=== PATIENT | female | born 1975 | race American Indian/Alaskan Native ===

== ENCOUNTER 2020-10-16 09:15 | Outpatient (CLI) | payer OTHER ==
--- NOTE | 2020-10-16 12:52 | Magnetic Resonance Report ---
BILATERAL BREAST MRI WITH AND WITHOUT CONTRAST CLINICAL INFORMATION/INDICATION: The patient has a new diagnosis of right breast neoplasm (DCIS). She recently underwent percutaneous biopsy of a right breast lesion which demonstrated DCIS. TECHNICAL: Axial T1 and T2-weighted fat sat images were obtained precontrast. Gadolinium-based contra st was injected intravenously and serial axial T1 weighted images with fat saturation were obtained. 3-D MIP projections, kinetic analysis and subtraction imaging was utilized to evaluate. A dedicated 8 -channel breast coil was used for image acquisition. COMPARISON: Diagnostic mammogram and ultrasound, 06/25/2020 from [facility]. FINDINGS: There is low level background enhancement within both breasts. There are scattered fibroglandular de nsities bilaterally. Right breast: There is a linear masslike area of enhancement at the 4:00 position anterior depth whic h represents patient's biopsy-proven right breast neoplasm. It measures 3.6 x 1.0 x 1.2 cm. It is loc ated 3.8 cm from the nipple and 9.2 cm from the chest wall. This corresponds to the asymmetric densit y seen on the mammogram. No additional separate suspicious area of enhancement is seen in the right b reast. Left breast: No dominant mass or suspicious area of enhancement is seen in the left breast. Axilla: No pathologically enlarged axillary lymph nodes are identified. Additional findings: Limited imaging of the thorax and upper abdomen demonstrates no focal abnormalit y. IMPRESSION: 1. Biopsy-proven right breast neoplasm at the 4:00 position anterior depth as described above. 2. No MRI abnormality of the left breast. Follow up recommendation: No recall. Surgical consultation is ongoing with Dr. Mathis. BI-RADS Category 6: Known Biopsy-Proven Malignancy. Signer Name: Juju Kasper MD Signed: 10/16/2020 12:48 PM Workstation Name: [id number]
== END 2020-10-16 09:16 | disposition home or self-care (01) ==
LOC: SPVIMAG 09:15
PROVIDERS: ATTEND Surgery
DX: R92.8 Other abnormal and inconclusive findings on diagnostic imaging of breast (principal)
CPT/HCPCS: A9577; C8908; 77049

== ENCOUNTER 2020-11-13 06:54 | Day surgery (SDC) | payer OTHER ==
[2020-11-06 09:47] LABS: Hematocrit 32.5 % (30.3-42.9); Hemoglobin 10.4 gm/dl (10.1-14.3); Mean Corpuscular HGB Conc 32 % (30-34); Mean Corpuscular Volume 78 fl (79-97); Platelet Count 345 K/mm3 (140-440); Red Blood Count 4.14 M/mm3 (3.65-5.03); Red Cell Distribution Width 17.1 % (13.2-15.2)
[2020-11-06 10:03] LABS: Blood Urea Nitrogen 11 mg/dL (7-17); Calcium 9.5 mg/dL (8.4-10.2); Hemolysis Index 2
[2020-11-06 10:04] LABS: BUN/Creatinine Ratio 16
[~2020-11-13 06:54] MED LIST: ACETAMINOPHEN 500 MG TAB PO SCH; BUPIVACAINE/PF (0.25%) 2.5 MG/ML 30 ML VIAL INFILTRATI ONE; CELECOXIB 200 MG CAP PO NR; GABAPENTIN 300 MG CAP PO NR; LACTATED RINGERS 1,000 ML IV SCH; LIDOCAINE (1%) 10 MG/1 ML VIAL 20 ML MDV INFILTRATI ONE; ceFAZolin/Water 2 GM/20 ML 2 GM/20 ML SYRINGE IV NR
[2020-11-13] MEDS ORDERED: BACTERIOSTATIC SODIUM CHLORIDE 0.9% 30 ML VIAL INFILTRATI ONE (06:57)
[2020-11-13] MEDS ORDERED: ONDANSETRON 4 MG/2 ML INJ IV PRN (07:28)
[2020-11-13] MEDS ORDERED: HYDROmorphone 1 MG/1 ML INJ IV PRN (07:28)
--- NOTE | 2020-11-13 07:28 | Anesthesia Consultation ---
Anesthesia Consult and Med Hx Date of service: 11/13/20 - Airway Anesthetic Teeth Evaluation: Good ROM Head & Neck: Adequate Mental/Hyoid Distance: Adequate Mallampati Class: Class I Intubation Access Assessment: Good - Pre-Operative Health Status ASA Pre-Surgery Classification: ASA2 Proposed Anesthetic Plan: General - Pulmonary Hx Smoking: No Hx Respiratory Symptoms: No - Cardiovascular System Hx Hypertension: Yes Hx Heart Attack/AMI: No Hx Percutaneous Transluminal Coronary Angioplasty (PTCA): No - Central Nervous System CVA: No - Endocrine Hx Renal Disease: No Hx Liver Disease: No Hx Non-Insulin Dependent Diabetes: Yes Hx Thyroid Disease: No - Other Systems Hx Obesity: Yes (BMI 32) - Additional Comments Anesthesia Medical History Comments: No hx anesthetic complications.
--- NOTE | 2020-11-13 07:28 | Anesthesia Day of Surgery ---
Anesthesia Day of Surgery - Day of Surgery Patient Examined: Yes Patient H&P Reviewed: Yes Patient is NPO: Yes
[2020-11-13] MEDS ORDERED: LIDOCAINE (1%) 10 MG/1 ML VIAL 20 ML MDV ONE ×3 (07:30→11:24)
[2020-11-13] MEDS ORDERED: BUPIVACAINE/PF (0.25%) 2.5 MG/ML 30 ML VIAL INFILTRATI ONE ×3 (07:31→12:57)
[2020-11-13] MEDS: MIDAZOLAM 2 MG/2 ML INJ IV NR ×2 (08:52→10:25)
--- NOTE | 2020-11-13 09:42 | Mammography Report ---
MAMMOGRAPHIC GUIDED RIGHT BREAST NEEDLE LOCALIZATION, 11/13/2020 CLINICAL INFORMATION / INDICATION: RT BREAST MASS. COMPARISON: 10/16/2020. 08/28/2020. PROCEDURE: Risks, benefits and indications to the procedure were discussed with the patient. The patient agreed to proceed with both verbal and written consent. A timeout procedure was performed with 2 patient sheryl ntifiers. The breast was prepped with betadine in the usual sterile fashion. Approximately 3 cc of Lidocaine 1% was used for local anesthesia. Under direct digital mammographic guidance, a localization wire was p laced in satisfactory position with distal tip traversing the targeted lesion. Post-biopsy mammogram confirms satisfactory positioning of the localization wire. The wire was secured to the skin with a s terile dressing. The patient tolerated procedure without difficulty. No complications were encountered. IMPRESSION: 1. Satisfactory mammographic guided wire localization of the right breast. Signer Name: Emory Dumont Jr, MD Signed: 11/13/2020 9:38 AM Workstation Name: [id number]
[2020-11-13] MEDS ORDERED: MIDAZOLAM 2 MG/2 ML INJ IV NR (10:30)
[2020-11-13] MEDS ORDERED: ONDANSETRON 4 MG/2 ML INJ ONE (11:37)
[2020-11-13] MEDS ORDERED: dexAMETHasone 20 MG/5 ML VIAL ONE (11:37)
[2020-11-13] MEDS ORDERED: KETOROLAC 30 MG/1 ML INJ ONE (11:37)
[2020-11-13] MEDS ORDERED: propofoL 200 MG/20 ML VIAL IV ONE (11:37)
[2020-11-13] MEDS ORDERED: LIDOCAINE MPF (2%) 20 MG/1 ML VIAL 5 ML ONE (11:37)
[2020-11-13] MEDS ORDERED: HYDROmorphone 1 MG/1 ML INJ ONE (11:37)
[2020-11-13] MEDS ORDERED: ePHEDrine SULFATE 50 MG/1 ML INJ ONE (12:31)
[2020-11-13] MEDS ORDERED: WATER FOR IRRIG STERILE 1,500 ML BOTTLE IR ONE (12:42)
[2020-11-13] MEDS ORDERED: SODIUM CHLORIDE 0.9% 1000 ML 1,000 ML ONE (12:51)
[2020-11-13] MEDS ORDERED: LIDOCAINE (1%) 10 MG/1 ML VIAL 20 ML MDV INFILTRATI ONE (12:57)
--- NOTE | 2020-11-13 13:07 | Short Stay Summary ---
Short Stay Documentation Date of service: 11/13/20 - History H&P: obtained from office - Allergies and Medications Current Medications: Allergies shellfish derived Allergy (Verified 11/05/20 17:08) Itching Home Medications Medication Instructions Recorded Confirmed Last Taken Type Dulaglutide [Trulicity] 1.5 mg SQ QWEEK 11/05/20 11/05/20 11/12/20 History Irbesartan/Hydrochlorothiazide 1 each PO DAILY 11/06/20 11/06/20 11/12/20 History [Avalide 150-12.5 mg Tablet] oxyCODONE /ACETAMINOPHEN [Percocet 1 tab PO Q6HR PRN #8 tablet 11/13/20 Unknown Rx 5/325] Active Medications Acetaminophen (Acetaminophen 500 Mg Tab) 1,000 mg PO PREOP TOI Stop: 11/13/20 23:00 Last Admin: 11/13/20 08:50 Dose: 1,000 mg Documented by: Celecoxib (Celecoxib 200 Mg Cap) 200 mg PO PREOP NR Stop: 11/13/20 23:00 Last Admin: 11/13/20 08:50 Dose: 200 mg Documented by: Gabapentin (Gabapentin 300 Mg Cap) 300 mg PO PREOP NR Stop: 11/13/20 23:00 Last Admin: 11/13/20 08:50 Dose: 300 mg Documented by: Hydromorphone HCl (Hydromorphone 1 Mg/1 Ml Inj) 0.5 mg IV Q10MIN PRN PRN Reason: Pain , Severe (7-10) Stop: 11/13/20 23:00 Cefazolin Sodium (Ancef/Sterile Water 2 Gm/20 Ml) 2 gm in 20 mls @ 80 mls/hr IV PREOP NR; Protocol Stop: 11/13/20 23:00 Lactated Ringer's (Lactated Ringers) 1,000 mls @ 100 mls/hr IV DIRECT TOI Stop: 11/13/20 23:59 Last Admin: 11/13/20 08:45 Dose: 100 mls/hr Documented by: Midazolam HCl (Midazolam 2 Mg/2 Ml Inj) 2 mg IV PREOP NR Stop: 11/13/20 23:00 Last Admin: 11/13/20 10:25 Dose: 2 mg Documented by: Midazolam HCl (Midazolam 2 Mg/2 Ml Inj) 2 mg IV PREOP NR Stop: 11/13/20 23:59 Ondansetron HCl (Ondansetron 4 Mg/2 Ml Inj) 4 mg IV ONCE PRN PRN Reason: Nausea And Vomiting Stop: 11/13/20 16:00 - Brief post op/procedure progress note Date of procedure: 11/13/20 Pre-op diagnosis: Right breast atypia lower inner quadrant Post-op diagnosis: same Procedure: Right needle localization excisional biopsy Anesthesia: GETA Findings: wire and clip present Surgeon: FANI URIBE Estimated blood loss: minimal Pathology: list Specimen disposition: to lab Condition: stable - Disposition Condition at discharge: Good Disposition: DC-01 TO HOME OR SELFCARE Short Stay Discharge Plan Activity: other (no heavy lifting) Diet: regular Wound: keep clean and dry (may shower in 48 hours; no baths, pools or lakes; wear breast binder; do not rub or scrub incision) Follow up with: FANI URIBE MD [Staff Physician] - 7 Days Prescriptions: oxyCODONE /ACETAMINOPHEN [Percocet 5/325] 1 tab PO Q6HR PRN #8 tablet PRN Reason: Pain
--- NOTE | 2020-11-13 13:13 | Operative Report ---
Operative Report Operative Report: Operative Report: November 13, 2020 Preoperative diagnosis: Right breast distortion/asymmetry of the lower inner quadrant Postoperative diagnosis: Same Procedure: Right breast needle localization excisional biopsy Surgeon: Henna Mathis MD Sediment Remediation Consultant: Carol Washington MD Anesthesia: General Findings: Right wire and x1 clip present within radiograph specimen Complications: None EBL: Minimal (less than 25 cc) Disposition: PACU in good condition Indications for operative procedure: This is a 45 year old lady with recent abnormal right mammogram of the lower inner quadrant. Ultrasound guided needle core biopsy performed at 4:00 position 3-5 cm FN with findings of atypia and suspicioun for DCIS (at area of multiple ectatic ducts). Breast MRI with consistent findings of nonmass enhancment at area of concern at biopsy location. Recommendations are to proceed with right breast needle excisional biopsy to rule out malignancy. She wished to proceed with the above procedure. Procedure in detail: The patient was taken to radiology for wire placement for localization known area of concern. Patient was then taken to the operating room. Gen. anesthesia was administered. Right breast and axilla were prepped and draped in the normal sterile operative fashion. The wire was identified around 4:00 position 3-5 cm FN. Timeout was performed. Ultrasound used as well to localize area of excision. Attention was then taken towards the right breast. A 4:00 periareolar breast incision was made with a 15 blade knife and dissection taken down to subcutaneous tissues. First began raising of the anterior flap with removal of the wire from the skin with careful dissection performed and dissection was taken down posteriorly past the wire, followed by raising of the superior flap, inferior flap and medial flap with all flaps taken down posteriorly past the wire. The breast area of concern was appropriately removed posteriorly with the aid of the Bovie cautery. The wire was not encountered. Specimen was marked and then sent to pathology and radiology; radiograph specimen with wire and x1 clip present. Breast cavity was irrigated and hemostasis was obtained. Breast cavity was anesthesized wtih 1% lidocained mixed with quarter percent marcaine withou epinephrine. The posterior deep breast tissues were approximated and closed using interrupted 3-0 Vicryl. The subcutaneous tissues were approximated and closed using interrupted 3-0 Vicryl followed by closing of the skin with a running 4-0 Monocryl and skin affix. The patient tolerated surgery very well and she was awaken from anesthesia without any complication and transported to PACU in good condition.
[2020-11-13] MEDS ORDERED: BACITRACIN ZINC OINT 28.4 GM TP SCH (14:00)
[2020-11-13 15:14] VITALS: BP 124/73
--- NOTE | 2020-11-13 15:20 | Post Anesthesia Evaluation ---
- Post Anesthesia Evaluation Patient Participated: Yes Airway Patent: Yes Stable Respiratory Function: Yes Nausea/Vomiting: No Temp > 96.8F: Yes Pain Manageable: Yes Adequeate Hydration: Yes Anesthesia Complications: No
--- NOTE | 2020-11-15 12:33 | Mammography Report ---
BREAST SPECIMEN RADIOGRAPH HISTORY: Lumpectomy FINDINGS/IMPRESSION: The submitted radiograph or radiographs demonstrate(s) the presence of a biopsy marker and distal asp ect of a localization wire within soft tissue. Signer Name: Leidy Zimmerman MD Signed: 11/15/2020 12:29 PM Workstation Name: [id number]
== END 2020-11-13 14:50 | disposition home or self-care (01) ==
LOC: OR 06:54
PROVIDERS: ATTEND Surgery
DX: N64.89 Other specified disorders of breast (principal); N62 Hypertrophy of breast; I10 Essential (primary) hypertension; E66.9 Obesity, unspecified; E11.9 Type 2 diabetes mellitus without complications; Z17.1 Estrogen receptor negative status [ER-]; Z20.822 Contact with and (suspected) exposure to COVID-19; Z98.890 Other specified postprocedural states; Z91.013 Allergy to seafood; Z79.899 Other long term (current) drug therapy; Z90.49 Acquired absence of other specified parts of digestive tract; Z98.51 Tubal ligation status; Z68.32 Body mass index [BMI] 32.0-32.9, adult
CPT/HCPCS: 19125; 19281; 36415; 76098; 80048; 82962; 85027; 88307; 88341; 88342; A4648; J0690; J1100; J1170; J1885; J2250; J2405; J2704; J7030; J7120; U0003